=== PATIENT | male | born 1990 | race Caucasian/White ===

== ENCOUNTER 2017-07-05 02:11 | Emergency (ER) | payer BC ==
[~2017-07-05] VITALS: Ht 175.3 cm; Wt 71.0 kg
[2017-07-05 02:21] VITALS: BP 151/82; PULSE 58; RESP 16; TEMP 97.2; O2SAT 100
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
[2017-07-05 05:40] VITALS: BP 127/67; PULSE 58; RESP 17; TEMP 98.5; O2SAT 98
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
[2017-07-05] MEDS ORDERED: LIDOCAINE HCL 1% PF 30 ML VIAL INFIL ONE (08:30)
--- NOTE | 2017-07-05 09:20 | PD ---
Physical Exam Date Seen by Provider: Jul 05, 2017 Time Seen by Provider: 09:20 Data Data Last Documented VS Vital Signs Date Time Temp Pulse Resp B/P (MAP) Pulse Ox O2 Delivery O2 Flow Rate FiO2 07/05/17 05:40 98.5 58 17 127/67 (87) 98 Room Air Orders Orders Ice/Cold Pack (07/05/17 02:26) Finger ([id number]) (07/05/17 02:26) Lidocaine Pf 1% Inj (Xylocaine-Mpf 1% In (07/05/17 08:30) MDM Medical Record Reviewed: Yes Supervised Visit with THELMA: No Procedures Procedure Narrative LACERATION LOCATION: Right scalp LENGTH: 4 cm NUMBER OF STITCHES/JENY: 5 jeny REPAIR: The area of the laceration was prepped with Betadine and sterilely draped. The laceration was infiltrated with 1% lidocaine. The wound was copiously irrigated and explored without evidence of foreign body, tendon injury or neurovascular injury. The wound was closed using staple gun. This was a single layer repair. A sterile dressing was applied. The patient was advised to keep the dressing clean and dry. Patient tolerated the procedure well. LACERATION LOCATION: Right fifth finger LENGTH: 3 cm NUMBER OF STITCHES/JNEY: 6 simple interrupted, 3 buried REPAIR: The area of the laceration was prepped with Betadine and sterilely draped. The laceration was infiltrated with 1% lidocaine and 0.5% bupivacaine. The wound was copiously irrigated and explored without evidence of foreign body, tendon injury. The wound was closed using 4-0 Prolene and 5-0 Vicryl. This was a double layer repair. A sterile dressing was applied. The patient was advised to keep the dressing clean and dry. Patient tolerated the procedure well. There is some decreased capillary refill distally. Patient monitored in ED postprocedure. Scripts No Active Prescriptions or Reported Meds Condition: Stable Carolina Novoa Jul 05, 2017 09:20
[2017-07-05] MEDS ORDERED: NAPR500T2 PO (10:13)
[2017-07-05] MEDS ORDERED: PERC5TAB12 PO (10:13)
[2017-07-05] MEDS ORDERED: CEPH-460 PO (10:13)
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
[2017-07-05] MEDS ORDERED: ACETAMINOPHEN/HYDROcodone 325 MG/5 MG TAB PO ONE (10:15)
[2017-07-05] MEDS ORDERED: CEPHALEXIN MONOHYDRATE 500 MG CAP PO ONE (10:15)
[2017-07-05] MEDS ORDERED: NAPROXEN 500 MG TAB PO ONE (10:15)
[2017-07-05 10:16] VITALS: BP 135/69; PULSE 80; RESP 18; O2SAT 95
== END 2017-07-05 10:36 | disposition home or self-care (01) ==
LOC: NEPC 02:11
DX: S61.216A Laceration without foreign body of right little finger without damage to nail, initial encounter (principal); S01.01XA Laceration without foreign body of scalp, initial encounter; R51 Headache; V29.9XXA Motorcycle rider (driver) (passenger) injured in unspecified traffic accident, initial encounter
CPT/HCPCS: 12002; 12042; 73140